=== PATIENT | female | born 1980 | race Caucasian/White ===

== ENCOUNTER 2016-08-07 13:39 | Emergency (ER) | payer OTHER ==
[2016-08-07 13:40] VITALS: BMI 33.3
[2016-08-07 13:54] VITALS: TEMP 98.4
[2016-08-07] MEDS ORDERED: NS 1,000 ML IV ONE (14:36)
[2016-08-07] MEDS ORDERED: ONDANSETRON HCL 4 MG/2 ML VIAL IV ONE (14:36)
[2016-08-07] MEDS ORDERED: ONDANSETRON HCL 4 MG ODT TAB PO ONE (14:50)
[2016-08-07] MEDS ORDERED: OXYCODONE HCL 5 MG TABLET PO ONE (14:50)
[2016-08-07] MEDS ORDERED: MORPHINE 4 MG/ML INJECTION IV ONE (14:54)
[2016-08-07 14:56] LABS: AUTOMATED BASOPHIL 0.6 % (0-2); AUTOMATED EOSINOPHIL 1.6 % (0-5); AUTOMATED LYMPH 28.4 % (17-44); AUTOMATED MONOCYTE 6.7 % (3-10); AUTOMATED NEUTROPHIL 62.7 % (45-76); MPV 8.2 fL (7.4-10.4)
[2016-08-07 15:10] LABS: BLOOD UREA NITROGEN 13 MG/DL (7-17); CALCIUM 9.1 MG/DL (8.4-10.2); CALCULATED OSMOLALITY 268 MOs/Kg (270-290); CHLORIDE 104 mEq/L (98-107); GLUCOSE 76 MG/DL (70-99); SODIUM LEVEL 140 mEq/L (137-146); TOTAL PROTEIN 7.1 G/DL (6.3-8.2)
--- NOTE | 2016-08-07 16:12 | DIRPT ---
CLINICAL DATA: 36-year-old presenting with chronic postprandial right upper quadrant abdominal pain for several months which has been acutely worse the past 2 days. EXAM: US ABDOMEN LIMITED - RIGHT UPPER QUADRANT COMPARISON: CT abdomen and pelvis 02/26/2012. No prior ultrasound. FINDINGS: Gallbladder: No shadowing gallstones or echogenic sludge. No gallbladder wall thickening or pericholecystic fluid. Negative sonographic Avila sign according to the medical technologist prn. Common bile duct: Diameter: Approximately 5 mm. Liver: Normal size and echotexture without focal parenchymal abnormality. Patent portal vein with hepatopetal flow. IMPRESSION: Normal examination. Electronically Signed By: Jamey Alvarenga M.D. On: 08/07/2016 16:09
[2016-08-07 16:29] LABS: LEUKOCYTES/URINE NEG (NEGATIVE); NITRITE/URINE NEG (NEGATIVE); RBC/URINE 0-2 (0-5); URINE OCCULT BLOOD NEG (NEG/TRACE); WBC/URINE 0-2 (0-5)
--- NOTE | 2016-08-07 16:37 | EDPRACDOC ---
- General Information Chief Complaint: Abdominal Pain Stated Complaint: MID UPPER ABD PAIN & INTO BACK Time Seen by Provider: 08/07/16 14:41 Information Source: Patient Home Medications: Home Medications Acetaminophen [Mapap] 500 - 1,000 mg PO Q8H PRN 08/07/16 Ondansetron [Zofran Odt] 4 mg PO TID PRN #10 tab.rapdis 08/07/16 Allergies/Adverse Reactions: Allergies Allergy/AdvReac Type Severity Reaction Status Date / Time codeine [Codeine] Allergy Hives* Verified 08/07/16 13:54 Penicillins Allergy Edema-Gener Verified 08/07/16 13:54 alized - History of Present Illness Onset: ON-GOING HPI: C/o RUQ and epigastric pain after eating x months with inc in sx past 2 days including N/V/D. Denies cp, fever, sob, cough, changes in urine. Med hx = none. Surgical hx = appy, BTL, partial hysterectomy with both ovaries still present. Pain Location: Reports: Epigastric, RUQ Pain Context: Reports: After Eating Pain Severity: Moderate Pain Quality: Reports: Colicky Pain Radiation: Reports: Back Adult Abdominal History: Reports: Abdominal Surgery Female Abdominal History: Reports: Abdominal Surgery Modifying Factors: improves with: Nothing Female Associated Signs & Symptoms: Reports: Nausea, Vomiting, Diarrhea Oral Intake: Decreased Urinary Output: Normal ED Past Medical History - History Reviewed Yes Nurses notes reviewed and agree except as marked - Patient Medical History Psychological History: Denies: Depression Systemic History: Denies: Cancer Surgical History: Reports: Appendectomy, Hysterectomy, Tonsillectomy/ Adnoidectomy, Other (LEFT KNEE SURGERY) - Social Medical History Smoking Status: Heavy tobacco smoker (5 or more cigarettes/day or daily pipe/ cigar) EDM Review of Systems - Review of Systems ROS Negative Except as Marked: Yes All systems reviewed and were negative except as marked Gastrointestinal: Diarrhea, Nausea, Pain, Vomiting - Physical Exam Constitutional: Alert Oriented to: Time, Person, Place Last recorded Vital Signs: Last Vital Signs Temp 98.4 F 08/07/16 13:49 Pulse 80 08/07/16 17:29 Resp 18 08/07/16 17:29 BP 125/75 08/07/16 17:29 Pulse Ox 96 08/07/16 17:29 Oxygen Pulse Oxygen Saturation 96 O2 Device Room Air Oxygen Flow Rate Fraction of Inspired Oxygen ( FIO2) - HEENT Head: Normal Eye Exam: negative: Conjunctival Injection, Scleral Icterus Oropharynx: negative: Drooling TMJ: Normal Nose: No Symptoms Reported Neck: Normal - Respiratory/Cardiovascular Respiratory: Normal - CTA Cardiovascular: Normal - GI Auscultation: Normal Palpation: Normal Tenderness: Moderate, RUQ, Epigastric Avila's Sign: Positive - Musculoskeletal Back: Normal Extremities: Normal - Integumentary Skin: Normal - Neurologic Mood Description: Normal Thought: Coherent Perception: Normal - Results 08/07/16 13:57 08/07/16 13:57 WBC 7.4 xk/uL (3.8-10.8) 08/07/16 13:57 RBC 4.31 xM/uL (4.20-5.40) 08/07/16 13:57 Hgb 13.7 g/dL (12.0-16.0) 08/07/16 13:57 Hct 40.2 % (36-47) 08/07/16 13:57 MCV 93 fL (81-99) 08/07/16 13:57 MCH 31.7 pg (27-32) 08/07/16 13:57 MCHC 34.1 g/dl (33-36) 08/07/16 13:57 RDW 14.1 % (11.5-14.5) 08/07/16 13:57 Plt Count 263 xk/uL (130-400) 08/07/16 13:57 MPV 8.2 fL (7.4-10.4) 08/07/16 13:57 Neut % (Auto) 62.7 % (45-76) 08/07/16 13:57 Lymph % (Auto) 28.4 % (17-44) 08/07/16 13:57 Josephine % (Auto) 6.7 % (3-10) 08/07/16 13:57 Eos % (Auto) 1.6 % (0-5) 08/07/16 13:57 Baso % (Auto) 0.6 % (0-2) 08/07/16 13:57 Absolute Neuts (auto) 4.59 xk/uL (1.7-8.2) 08/07/16 13:57 Absolute Lymphs (auto) 2.07 xk/uL (0.65-4.75) 08/07/16 13:57 Sodium 140 mEq/L (137-146) 08/07/16 13:57 Potassium 4.3 mEq/L (3.5-5.1) 08/07/16 13:57 Chloride 104 mEq/L (98-107) 08/07/16 13:57 Carbon Dioxide 28 mMOL/L (22-33) 08/07/16 13:57 Anion Gap 12 mEq/L (8-16) 08/07/16 13:57 BUN 13 MG/DL (7-17) 08/07/16 13:57 Creatinine 0.80 MG/DL (0.52-1.04) 08/07/16 13:57 Estimated GFR (MDRD) > 60 mL/min (>=60) 08/07/16 13:57 Glucose 76 MG/DL (70-99) 08/07/16 13:57 Calculated Osmolality 268 MOs/Kg (270-290) L 08/07/16 13:57 Calcium 9.1 MG/DL (8.4-10.2) 08/07/16 13:57 Total Bilirubin 0.3 MG/DL (0.2-1.3) 08/07/16 13:57 AST 19 IU/L (14-36) 08/07/16 13:57 ALT 35 IU/L (9-52) 08/07/16 13:57 Alkaline Phosphatase 74 IU/L (38-126) 08/07/16 13:57 Total Protein 7.1 G/DL (6.3-8.2) 08/07/16 13:57 Albumin 4.1 G/DL (3.5-5.0) 08/07/16 13:57 Lipase 57 U/L (23-300) 08/07/16 13:57 Urine Color Yellow 08/07/16 16:15 Urine Clarity Clear 08/07/16 16:15 Urine pH 8.0 (5.0-8.0) 08/07/16 16:15 Ur Specific [place] 1.010 (1.003-1.035) 08/07/16 16:15 Urine Protein Neg (NEG/TRACE) 08/07/16 16:15 Urine Glucose (UA) Neg (NEGATIVE) 08/07/16 16:15 Urine Ketones Neg (NEGATIVE) 08/07/16 16:15 Urine Occult Blood Neg (NEG/TRACE) 08/07/16 16:15 Urine Nitrite Neg (NEGATIVE) 08/07/16 16:15 Urine Bilirubin Neg (NEGATIVE) 08/07/16 16:15 Urine Urobilinogen <2.0 MG/DL (0-1) 08/07/16 16:15 Ur Leukocyte Esterase Neg (NEGATIVE) 08/07/16 16:15 Urine RBC 0-2 (0-5) 08/07/16 16:15 Urine WBC 0-2 (0-5) 08/07/16 16:15 Ur Epithelial Cells Occ 08/07/16 16:15 Urine Mucus Occ (NEG/OCC) 08/07/16 16:15 Lab Results 08/07/16 08/07/16 08/07/16 16:15 13:57 13:57 WBC 7.4 RBC 4.31 Hgb 13.7 Hct 40.2 MCV 93 MCH 31.7 MCHC 34.1 RDW 14.1 Plt Count 263 MPV 8.2 Neut % (Auto) 62.7 Lymph % (Auto) 28.4 Josephine % (Auto) 6.7 Eos % (Auto) 1.6 Baso % (Auto) 0.6 Absolute Neuts (auto) 4.59 Absolute Lymphs (auto) 2.07 Sodium 140 Potassium 4.3 Chloride 104 Carbon Dioxide 28 Anion Gap 12 BUN 13 Creatinine 0.80 Estimated GFR (MDRD) > 60 Glucose 76 Calculated Osmolality 268 L Calcium 9.1 Total Bilirubin 0.3 AST 19 ALT 35 Alkaline Phosphatase 74 Total Protein 7.1 Albumin 4.1 Lipase 57 Urine Color Yellow Urine Clarity Clear Urine pH 8.0 Ur Specific [place] 1.010 Urine Protein Neg Urine Glucose (UA) Neg Urine Ketones Neg Urine Occult Blood Neg Urine Nitrite Neg Urine Bilirubin Neg Urine Urobilinogen <2.0 Ur Leukocyte Esterase Neg Urine RBC 0-2 Urine WBC 0-2 Ur Epithelial Cells Occ Urine Mucus Occ - Diagnostic Imaging Abdomen Image interpreted by: Radiologist 08/07/16 16:36 EXAM: US ABDOMEN LIMITED - RIGHT UPPER QUADRANT COMPARISON: CT abdomen and pelvis 02/26/2012. No prior ultrasound. FINDINGS: Gallbladder: No shadowing gallstones or echogenic sludge. No gallbladder wall thickening or pericholecystic fluid. Negative sonographic Avila sign according to the cardiac cath lab radiology technologist. Common bile duct: Diameter: Approximately 5 mm. Liver: Normal size and echotexture without focal parenchymal abnormality. Patent portal vein with hepatopetal flow. IMPRESSION: Normal examination. Electronically Signed By: Jamey Alvarenga M.D. On: 08/07/2016 16:09 Decision Time to Discharge: 17:39 - Departure Condition: Stable Final Diagnosis: Biliary colic Instructions: Biliary Colic (ED), Non-pharmacological Pain Management Therapies for Adults (GEN), Acute Abdominal Pain (ED), Abdominal Pain (ED) Education/Counseling Given To: Patient, Family Member Education/Counseling Given Regarding: Diagnosis, Treatment, Prognosis, Follow Up Referrals: Allen Pang MD [Staff Physician] - One Week Prescriptions: New Ondansetron [Zofran Odt] 4 mg PO TID PRN #10 tab.rapdis PRN Reason: Nausea/Vomiting No Action Acetaminophen [Mapap] 500 - 1,000 mg PO Q8H PRN PRN Reason: Pain Additional Instructions: Follow up with Dr pang for HIDA scan Take zofran for nausea. Take tylenol for pain. Return to ED for any new or worsening symptoms.
[2016-08-07 17:44] VITALS: BP 125/75; PULSE 80
== END 2016-08-07 17:45 | disposition home or self-care (01) ==
LOC: ED 13:39
DX: K80.50 Calculus of bile duct without cholangitis or cholecystitis without obstruction (principal)
CPT/HCPCS: 36415; 76705; 80053; 81001; 83690; 85025; 96361; 96374; 96375; 99284; J2270; J2405